=== PATIENT | male | born 1980 | race African-American/Black ===

== ENCOUNTER 2020-02-11 09:43 | Emergency (ER) | payer MEDICAID ==
[~2020-02-11] VITALS: Ht 190.5 cm; Wt 84.4 kg
[2020-02-11] MEDS ORDERED: TRAMADOL HCL50 MG ORAL (10:25)
[2020-02-11] MEDS ORDERED: BACTRIM DS TAB1 EAC1 ORAL (10:25)
[2020-02-11] MEDS ORDERED: CEPHALEXIN500 MG ORAL (10:25)
[2020-02-11] MEDS ORDERED: Cephalexin 500mg cap ORAL ONE (10:30)
[2020-02-11] MEDS ORDERED: Bactrim-DS 1 tab ORAL ONE (10:30)
[2020-02-11] MEDS ORDERED: traMADol 50mg tab ORAL ONE (10:30)
--- NOTE | 2020-02-11 10:31 | Emergency Room Report ---
History of Present Illness General Chief Complaint: Skin Rash/Abscess Source: Patient Present Illness HPI Patient is a 39-year-old male denies any history of diabetes but states that he has had abscesses before who presents to the ER complaining of abscess to his left buttock for the past few days. Patient denies any fever or chills. He denies any trauma. 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 Patient History Reviewed Nursing Documentation: PMH: Agreed; PSxH: Agreed Nursing Documentation-PM Past Medical History: No Stated History Review of Systems All Other Systems: negative except mentioned in HPI Physical Exam Vital Signs Date Time Temp Pulse Resp B/P (MAP) Pulse Ox O2 Delivery O2 Flow Rate FiO2 02/11/20 10:09 97.9 92 20 119/70 (86) 96 Room Air Sp02 EP Interpretation: reviewed, normal General Appearance: no apparent distress, alert, GCS 15, non-toxic Head: normocephalic, atraumatic Eyes: bilateral eye normal inspection, bilateral eye PERRL ENT: hearing grossly normal, normal pharynx, no angioedema, normal voice Neck: full range of motion, supple/symm/no masses Respiratory: chest non-tender, lungs clear, normal breath sounds, speaking full sentences Cardiovascular #1: regular rate, rhythm, no edema Gastrointestinal: normal bowel sounds, non tender, soft, non-distended, no guarding, no rebound Rectal: other - 2 small abscesses to the left lateral buttock with no surrounding cellulitis or discharge mild tenderness to palpation chaperoned by bedside JUDIE Crowley Musculoskeletal: normal range of motion Neurologic: medical laboratory technicians III-XII nml as tested, oriented x3 Psychiatric: no suicidal/homicidal ideation Medical Decision Making Diagnostic Impression: Primary Impression: Abscess ER Course Patient's abscess treated with Bactrim and Keflex. After discussing risks and benefits of further diagnostics, treatment plans, as well as indications for and risks of admission, the patient is agreeable to being discharged home. I have explained that their evaluation and treatment in the emergency department today is an important step towards them achieving better health but that their evaluation today is not intended to replace further evaluation and treatment by a physician in their local clinic. I have explained that while the current findings suggest no immediate life threatening emergency they will require further evaluation and treatment by a physician of their choice in their area. They understand that it will be necessary for them to review the final reports of their ED visit with their clinic physician. We have reviewed indications for return to the Emergency Department. I have explained that additional time may need to pass and/or additional testing as an outpatient may be necessary before a definitive diagnosis can be made. They tell me they are willing to follow up as instructed within the timeframe I recommend. They appear to understand what we discussed. Additionally they understand that if they are unable to be seen by an outpatient physician they are welcome, and in fact should, return to the Emergency Department for a repeat evaluation. The patient is stable at time of discharge. Last Vital Signs Date Time Temp Pulse Resp B/P (MAP) Pulse Ox O2 Delivery O2 Flow Rate FiO2 02/11/20 10:09 97.9 92 20 119/70 (86) 96 Room Air Disposition: HOME, SELF-CARE Condition: Stable Scripts Tramadol Hcl* (ULTRAM*) 50 Mg Tablet 50 MG ORAL Q6H PRN for For Pain, #12 TAB 0 Refills Prov: Reema Montemayor M.D. 02/11/20 Cephalexin* (KEFLEX*) 500 Mg Capsule 500 MG ORAL EVERY 6 HOURS for 10 Days, CAP Prov: Reema Montemayor M.D. 02/11/20 Trimethoprim/Sulfamethoxazole 160/800* (BACTRIM DS TABLET*) 1 Each Tablet 1 TAB ORAL Q12H, #20 TAB 0 Refills Prov: Reema Montemayor M.D. 02/11/20 [facility] Patient Instructions: Abscess Additional Instructions: The patient was provided with discharge instructions, notified to follow-up with a primary care doctor and or specialist in the next 24-48 hours, and to return to the ED if they have worsening of their symptoms. Please note that this report is being documented using [employer] technology. This can lead to erroneous entry secondary to incorrect interpretation by the dictating instrument. Reema Montemayor M.D. Feb 11, 2020 10:31
--- NOTE | 2020-02-11 10:40 | NUR ---
ED Nurse Note: Pt cleared by health care Provider for discharge. DC instructions/prescription was given and explained to pt and verbalized understanding of teachings. All medical deviecs such as ID band removed. Pt is AAO x4, ambulatory and left with all personal belongings.
[2020-02-11 10:46] VITALS: BP 119/70
== END 2020-02-11 10:40 | disposition home or self-care (01) ==
LOC: EMR 10:35
DX: L02.31 Cutaneous abscess of buttock (principal)
CPT/HCPCS: 99282